=== PATIENT | male | born 1965 | race Caucasian/White ===

== ENCOUNTER 2016-07-01 07:03 | Day surgery (SDC) | payer OTHER ==
--- NOTE | ~2016-07-01 | EGD ---
EGD REPORT [facility] [address] [place] [address] NAME: TOREY DIAZ : [birth year] STATUS : REG [facility] PAT#: [id number] AGE: 50 ADM/REG DATE : 07/01/16 MR#: [id number] REPORT SERV DATE: 07/01/16 DICTATED BY: KEE HARDY DATE: 07/01/16 REPORT STATUS : Draft [facility]ANS[facility]IB[facility] BY: [facility] DATE: 07/01/16 [facility] Center Patient Name: Torey Diaz Date of : 1965 Attending MD: PEMA HARDY MD Procedure Date No Time: 07/01/2016 Procedure: Colonoscopy Indications: Hematochezia Referring MD: Dayton Ashely MD Medicines: See the Anesthesia note for documentation of the administered medications Complications: No immediate complications. Estimated blood loss: None. Procedure: Pre-Anesthesia Assessment: - ASA Grade Assessment: III - A patient with severe systemic disease. - Prior to the procedure, a History and Physical was performed, and patient medications and allergies were reviewed. The patient's tolerance of previous anesthesia was also reviewed. The risks and benefits of the procedure and the sedation options and risks were discussed with the patient. All questions were answered, and informed consent was obtained. Prior Anticoagulants: The patient has taken anticoagulant medication, last dose was 3 days prior to procedure. After reviewing the risks and benefits, the patient was deemed in satisfactory condition to undergo the procedure. After I obtained informed consent, the scope was passed under direct vision. Throughout the procedure, the patient's blood pressure, pulse, and oxygen saturations were monitored continuously. The PCF [id number] was introduced through the anus and advanced to the cecum, identified by appendiceal orifice and ileocecal valve. The ileocecal valve, appendiceal orifice and rectum were photographed. The entire colon was examined. The colonoscopy was performed without difficulty. The patient tolerated the procedure well. The quality of the bowel preparation was adequate. Findings: The perianal and digital rectal examinations were normal. Non-bleeding internal hemorrhoids were found during retroflexion and were Grade I (internal hemorrhoids that do not prolapse). No other significant abnormalities were identified in a careful examination of the remainder of the colon. EGD REPORT [address] [place]. [address] NAME: TOREY DIAZ : [birth year] STATUS : REG [facility] PAT#: [id number] AGE: 50 ADM/REG DATE : 07/01/16 MR#: [id number] REPORT SERV DATE: 07/01/16 DICTATED BY: KEE HARDY DATE: 07/01/16 REPORT STATUS : Draft TRANS[facility]IBED BY: [facility] DATE: 07/01/16 Impression: - Non-bleeding internal hemorrhoids. Recommendation: - Patient has a contact number available for emergencies. The signs and symptoms of potential delayed complications were discussed with the patient. Return to normal activities tomorrow. Written discharge instructions were provided to the patient. - Regular diet. - Discharge patient to home. - Continue present medications. - Repeat colonoscopy in 10 years for surveillance. - Make sure you restart Eliquis today Procedure Code(s): --- Professional --- 60415, Colonoscopy, flexible, proximal to splenic flexure; diagnostic, with or without collection of specimen(s) by brushing or washing, with or without colon decompression (separate procedure) Diagnosis Code(s): --- Professional --- K64.0, First degree hemorrhoids K92.1, Melena CPT copyright 2013 [employer]. All rights reserved. The codes documented in this report are preliminary and upon windows phone developer review may be revised to meet current compliance requirements. PEMA HARDY MD 07/01/2016 9:13 AM This report has been signed electronically. Number of Addenda: 0 Note Initiated On: 07/01/2016 8:48 AM Scope Withdrawal Time 0 hours 7 minutes 42 seconds [address] [place] [address]
[~2016-07-01 07:03] MED LIST: ACET500CAP PO; ELIQUIS 5 MG TAB5 MG PO; MEDROLPAK4 PO; P20 PO; PRIN20 PO; PROAIR HFA INH; PROTONIX PO; PROVENTSOL INH; SINGULAIR1 PO; SYMBICORT 160/41 INH INH; Z-PAK PO
== END 2016-07-01 23:59 | disposition home health service (06) ==
LOC: DMU 07:03
PROVIDERS: Internal Medicine Gastroenterology
PROC: 0DJD8ZZ Inspection of Lower Intestinal Tract, Via Natural or Artificial Opening Endoscopic (ICD-10-PCS; principal; 2016-07-01 08:30)
DX: K92.1 Melena (principal); K64.0 First degree hemorrhoids; I10 Essential (primary) hypertension; J45.909 Unspecified asthma, uncomplicated; G47.33 Obstructive sleep apnea (adult) (pediatric); K21.9 Gastro-esophageal reflux disease without esophagitis; Z86.718 Personal history of other venous thrombosis and embolism; Z86.711 Personal history of pulmonary embolism